=== PATIENT | female | born 1970 | race Caucasian/White ===

== ENCOUNTER 2022-09-02 11:29 | Outpatient (CLI) | payer OTHER, SELFPAY ==
[2022-09-02 17:41] LABS: Chloride* 102 mmol/L (96-114); Potassium* 3.5 mmol/L (3.6-5.1); Sodium* 140 mmol/L (135-149)
[2022-09-02 17:44] LABS: Blood Urea Nitrogen* 14 mg/dL (5-24); Carbon Dioxide* 30 mmol/L (20-32); Creatinine* 0.8 mg/dL (0.5-1.5); Estimated Glomerular Filt Rate 90 ml/min; Glucose* 78 mg/dL (60-115)
[2022-09-02 17:45] LABS: Calcium* 10.9 mg/dL (8.4-10.6)
== END 2022-09-02 11:30 | disposition home or self-care (01) ==
LOC: LONREF 11:30
PROVIDERS: PCP Family Medicine; Visit Provider Family Medicine
DX: Z00.00 Encounter for general adult medical examination without abnormal findings (principal); I10 Essential (primary) hypertension
CPT/HCPCS: 80048

== ENCOUNTER 2024-02-16 12:43 | Outpatient (CLI) | payer OTHER, SELFPAY ==
--- OUTSIDE RECORDS SUMMARY | 2024-02-16 12:47 | XMS_ITS | Clinical Summary ---
Author Name Unknown Organization [facility] Address [address] [place] [address] Care Team Providers Care Plate Maker Name Role Phone Self-Referral, Patient Primary Care Provider Source Comments You are receiving this document as you are listed as the primary care provider,follow-up provider, or the patient has been referred to you for consultation.This is in compliance with the Medicare and[facility] EHR Incentive Program,which states Providers who transition their patient to another setting of careor provider of care or refers their patient to another provider of care shouldprovide summary care record for each transition of care or referral. [facility] Allergies No known active allergies Medications No known medications Active Problems No known active problems Immunizations Name Administration Dates Next Due Td 10/08/2003 Social History Tobacco Use Types Packs/Day Years Used Date Smoking Tobacco: Never Tobacco Cessation:Counseling Given: Not Answered Sex and Gender Information Value Date Recorded Sex Assigned at Not on file Gender Identity Not on file Sexual Orientation Not on file Plan of Treatment Health Maintenance Due Date Last Done Comments Cervical Cancer Screening Due 1972 Colon Cancer Screening Plan Due 1972 Hep C Screening (Preventive Services) 1972 Mammogram 1972 HIV Screening (Preventive Services) 1988 Adult Preventive Visit 1990 HepB (1) 1991 Cholesterol 2017 Zoster/Shingles (1 of 2) 2022 COVID-19 Vaccine ( season) 2023 04/27/2022, 05/11/2021, 01/21/2021 Influenza (Season Ended) 2024 020, 08/15/2019, 08/11/2019, Additional history exists DTaP/Tdap/Td (5 - Tdap) 08/03/2031 08/03/20 21, 04/14/2011, 10/08/2003, Additional history exists HepA Aged Out No longer eligi ble based on patient's age to complete this topic Hib Aged Out No longer eligi ble based on patient's age to complete this topic IPV (Polio) Aged Out No longer eligi ble based on patient's age to complete this topic MCV4 Aged Out No longer eligi ble based on patient's age to complete this topic Pneumococcal Aged Out No longer eligi ble based on patient's age to complete this topic Care Teams Plate Maker Relationship Specialty Start Date End Date Self-Referral, Patient, [place] [address] PCP - General 07/26/22
--- OUTSIDE RECORDS SUMMARY | 2024-02-16 12:47 | XMS_ITS | Clinical Summary ---
Author Name Unknown Organization [facility] [place], [place] [address] Care Team Providers Care Computer Clerk Name Role Phone Giuliana Bradford MD Primary Care Provider + Allergies Active Allergy Reactions Criticality Noted Date Comments Sulfa (Sulfonamide Antibiotics) Rash 07/02 Medications Medication Sig Dispensed Refills Start Date End Date Status aluminum chloride (HYPERCARE) 20 % external solution Apply topically to affected area(s) at bedtime. 30 mL 5 06/28/2013 Active lisinopril (PRINIVIL; ZESTRIL) 10 mg tablet Take 1 tablet by mouth once daily. 90 tablet 2 11/15/2013 Active fluticasone (50 mcg per actuation) nasal solution (FLONASE) Inhale 1 [place] into both nostrils once daily. dont fill until patient asks 1 Bottle prn 11/15/2013 Active Active Problems Problem Noted Date Diagnosed Date Hypertension 07/15/2013 Environmental allergies 06/28/2013 Resolved Problems Problem Noted Date Diagnosed Date Resolved Date Elevated blood pressure 06/29/201307/02 Immunizations Name Administration Dates Next Due AMB Influenza, (Flumist) Aziza e Intranasal,LAIV4 (Flu Clinic Only) 08/04/2020 COVID-19 vaccine (Moderna 100mcg/0.5mL) PF MDV 05/11/2021 Influenza,LAIV4 Live Intrana bobo (Flumist) 08/15/2019,08/01/2018,08/06/2015, 014 Td (Age >=7 Years) 10/08/2003 Tdap 04/14/2011,10/02/2002 Family History Medical History Relation Name Comments Other Brother 2 colitis Hypertension Father Hyperlipidemia Mother Hypertension Mother Thyroid Disease Mother Cancer Paternal Grandmother Pancrea tic Good Health Sister 3 Other Sister 4 Cancer-breast No Family History Cancer-colon No Family History Cancer-ovarian No Family History Cancer-prostate No Family History Relation Name Status Comments Brother 1 Alive eldest Brother 2 Father Alive HTN , CABG (70' s) Maternal Grandfather Maternal Grandmother Mother Alive HTN (40's), thy roid, skin cancer, Paternal Grandfather Paternal Grandmother Sister 1 Alive youngest Sister 2 Alive second youngest Sister 3 Sister 4 Social History Tobacco Use Types Packs/Day Years Used Date Smoking Tobacco: Never Smokeless Tobacco: Never Alcohol Use Standard Drinks/Week Comments Yes 2.5 (1 standard drink = 0.6 oz p ure alcohol) OCC <3 per week. Sex and Gender Information Value Date Recorded Sex Assigned at Female 05/10/2021 11:21 AM CDT Gender Identity Female 05/10/2021 11:21 AM CDT Sexual Orientation Not on file Obstetrics History Last Filed Vital Signs Vital Sign Reading Time Taken Comments Blood Pressure 132/84 11/15/2013 12:36 PM THERMAL CUTTING MACHINE OPERATOR Pulse 80 11/15/2013 12:36 PM THERMAL CUTTING MACHINE OPERATOR Temperature 37 ??C (98.6 ??F) 11/15/2013 12:36 PM THERMAL CUTTING MACHINE OPERATOR Respiratory Rate 18 03/10/2011 8:17 AM CDT Oxygen Saturation 100% 07/29/2013 4:10 PM CDT Inhaled Oxygen Concentration - - Weight 79.8 kg (176 lb) 11/15/2013 12:36 PM THERMAL CUTTING MACHINE OPERATOR Height 165.1 cm (5' 5) 06/28/2013 3:55 PM CDT Body Mass Index 29.29 06/28/2013 3:55 PM CDT Plan of Treatment Health Maintenance Due Date Last Done Comments Depression screening for age 12+ 1984 HIV for age 15-65 1987 BMI (ht and wt on same day) for age 18+ 1990 Hepatitis C screening for age 18-79 1990 Colonoscopy through age 75 2017 Mammogram for age 45-75 2017 07/15/2013, 01/09 Lipids for age 45-75 07/15/2018 07/15/2013, 01/20/20 10 Pap test for age 21-65 12/07/2018 6, 06/28/2013, 04/14/2011, Additional history exists Tetanus booster 04/14/2021 04/14/2011, 04/2004, 10/02/2002 Zoster (shingles) series for age 50+ (1 of 2) 2022 COVID-19 vaccine series (2 - 2022-24 season) 2023 05/11/2021 Influenza for age 50-64 06/02/2024 Tdap Completed 04/14/2011, 10/02/2002 Pneumococcal series for age 6-64 Aged Out No longer eligible based on patient's age to complete this topic Procedures Procedure Name Priority Date/Time Associated Diagnosis Comments SENIOR TECHNICAL SPECIALIST THIN PREP PAP SCREEN IMAGED Routine 12/08/2015 8:15 AM THERMAL CUTTING MACHINE OPERATOR XR MAMMO BILAT SCREEN FFDM (IA) Routine 07/15/2013 8:44 AM CDT Other screening mammogram LIPID PANEL W REFLEX MEASURED LDL Routine 07/15/2013 8:10 AM CDT Well woman exam from Last 3 Months or Most Recently Relevant to Health Maintenance Results * SENIOR TECHNICAL SPECIALIST THIN PREP PAP SCREEN IMAGED (12/08/2015 8:15 AM THERMAL CUTTING MACHINE OPERATOR) SENIOR TECHNICAL SPECIALIST CYTOLOGY See Anatomic Pathology case 12/12/2015 4:00 PM THERMAL CUTTING MACHINE OPERATOR [facility] Specimen (specimen) (Cervical) Client Collect / Unknown 12/08/2015 8:15 AM THERMAL CUTTING MACHINE OPERATOR 12/08/2015 7:09 PM THERMAL CUTTING MACHINE OPERATOR Meme Chun NP PATHOLOGY/CYTOLOGY [facility] [address] [place] [address], [place] * XR MAMMO BILAT SCREEN FFDM (07/15/2013 8:44 AM CDT) Anatomical Region Laterality Modality BREASTS, Breast Left, Breast Right Bilateral Mammography Impressions 07/15/2013 10:27 AM CDT ??There is no radiographic evidence for malignancy. ??Recommend annual mammograms. A lay language report of this examination will be provided to the patient. MAMMOGRAM ASSESSMENT: ??ACR 2 Benign Narrative 07/15/2013 10:27 AM CDT XR MAMMO BILAT SCREEN FFDM [G0202.0] CLINICAL HISTORY: ??This is an asymptomatic 42 y.o. patient. INDICATION FOR EXAM: Mammogram Screening. TECHNIQUE: CC & MLO views were obtained. ??This digital study was evaluated with the assistance of Computer-Aided Detection. ?? COMPARISON FILMS: Yes 01/10/12 [facility] FINDINGS: ??Mammographically, the breast tissue is heterogeneously dense, which could obscure detection of small masses (approximately 51% - 75% glandular). ??No suspicious masses or microcalcifications. ??Benign appearing mass(es) within left breast. Procedure Note Ely Blankenship MD - 07/15/2013 XR MAMMO BILAT SCREEN FFDM [G0202.0] CLINICAL HISTORY: This is an asymptomatic 42 y.o. patient. INDICATION FOR EXAM: Mammogram Screening. TECHNIQUE: CC & MLO views were obtained. This digital study was evaluatedwith the assistance of Computer-Aided Detection. COMPARISON FILMS: Yes 01/10/12 [facility] FINDINGS: Mammographically, the breast tissue is heterogeneously dense,which could obscure detection of small masses (approximately 51% - 75%glandular). No suspicious masses or microcalcifications. Benignappearing mass(es) within left breast. IMPRESSION: There is no radiographic evidence for malignancy. Recommendannual mammograms. A lay language report of this examination will be provided to the patient. MAMMOGRAM ASSESSMENT: ACR 2 Benign Giuliana Bradford MD MAMMO * LIPID PANEL W REFLEX MEASURED LDL (07/15/2013 8:10 AM CDT) CHOLESTEROL,TOTA L 160 100 - 199 mg/dL [facility] TRIGLYCERIDES 92 <150 mg/dL [facility] HDL CHOLESTEROL 64 >40 mg/dL [facility] CHOL/HDL RATIO 2.50 <4.50 [facility] NON-HDL CHOLESTEROL 96 Undefined mg/dL [facility] LDL CHOLESTEROL 78 <131 mg/dL [facility] PATIENT STATUS Fasting [facility] Blood specimen (specimen) BLOOD SPECIMEN / Unknown 07/15/2013 8:10 AM CDT 07/15/2013 8:06 AM CDT Giuliana Bradford MD CHEMISTRY [facility] INTERNAL ZIP [id number] [place] [phone] from Last 3 Months or Most Recently Relevant to Health Maintenance Care Teams Computer Clerk Relationship Specialty Start Date End Date Giuliana Bradford MD [address] [id number] PCP - General Family Practice 07/11/13
--- NOTE | 2024-02-16 13:00 | MM_ITS ---
Patient: SHEILA EWING Facility:?[facility] Patient ID:?[id number] Site Patient ID:?[id number]. Site :?[id number] Study:?XRay-Breast Bilateral 3D W/CAD-02/16/2024 1:19:03 PM Ordering Physician:Jase Final Report: BILATERAL SCREENING MAMMOGRAM WITH COMPUTER-AIDED DETECTION AND TOMOSYNTHESIS TECHNIQUE: CC and MLO views were obtained. These mammographic images have been obtained using full-field digital technique. These mammographic images were interpreted with the benefit of computer-aided detection. Breast Tomosynthesis was used in this interpretation. COMPARISON FILM: 02/13/23, 01/24/22, 12/22/20. FINDINGS: The breasts are heterogeneously dense, which may obscure small masses. IMPRESSION: There is no radiographic evidence for malignancy. ASSESSMENT: BI-RADS Category 2: Benign RECOMMENDATION: Routine screening mammogram in 1 year. A lay language report of this examination will be provided to the patient. Stone Holliday M.D. Diagnostic Radiologist [email or web address] DSM/sp R& Transcribed: 6:43 p.m. SP/Dictated by: Stone Holliday MD @ 02/19/2024 11:12:00 AM Signed by:?Stone Holliday MD @02/19/2024 8:47:29 PM (Electronic Signature)
== END 2024-02-16 12:44 | disposition home or self-care (01) ==
LOC: MAMMO 12:45
PROVIDERS: PCP Family Medicine; Visit Provider Family Medicine
DX: Z12.31 Encounter for screening mammogram for malignant neoplasm of breast (principal); R92.2 Inconclusive mammogram
CPT/HCPCS: 77063; 77067

== ENCOUNTER 2024-10-01 09:39 | Outpatient (CLI) | payer OTHER, SELFPAY | END 2024-10-01 09:40 | disposition home or self-care (01) | PROVIDERS: PCP Family Medicine; Visit Provider Emergency Medicine | DX: E83.52 Hypercalcemia (principal); I10 Essential (primary) hypertension; R60.0 Localized edema; Z13.29 Encounter for screening for other suspected endocrine disorder | CPT/HCPCS: 80053; 82306; 83970; 84443 ==

== ENCOUNTER 2024-11-06 09:02 | Outpatient (CLI) | payer OTHER, SELFPAY | END 2024-11-06 09:03 | disposition home or self-care (01) | PROVIDERS: PCP Emergency Medicine; Visit Provider Emergency Medicine | DX: R79.89 Other specified abnormal findings of blood chemistry (principal); I10 Essential (primary) hypertension | CPT/HCPCS: 80048; 82306; 83735; 83970; 84100 ==

== ENCOUNTER 2024-12-02 09:31 | Outpatient (CLI) | payer OTHER, SELFPAY ==
[2024-12-02 12:31] LABS: Creatinine Urine 48.4 mg/dL
[2024-12-02 12:51] LABS: Collection Time Urine 24 Hours
[2024-12-02 12:52] LABS: Total Volume 24 Hour Urine 2750 ml; Urine Creatinine mg/24 Hour 1331 mg/Day
[2024-12-03 18:57] LABS: Calcium/Creatinine Ratio Urine 312 mg/g (20-300); Hours Collected 24 hr; Total Volume 2750 mL
== END 2024-12-02 09:32 | disposition home or self-care (01) ==
LOC: NPINS 09:33
PROVIDERS: PCP Emergency Medicine; Visit Provider Internal Medicine Endocrinology, Diabetes & Metabolism
DX: E21.3 Hyperparathyroidism, unspecified (principal)
CPT/HCPCS: 82340; 82570

== ENCOUNTER 2024-12-12 14:37 | Outpatient (CLI) | payer OTHER, SELFPAY ==
--- NOTE | 2024-12-12 15:00 | CRLHL7_ITS ---
For Patients: As a result of the Century Cures Act, medical imaging exams and procedure reports are released immediately into your electronic medical record. You may view this report before your referring provider. If you have questions, please contact your health care provider. XR DXA BONE MINERAL DENSITY (BMD) Current height (in): 65.0. Weight (lb): 190.0. Menopause age: 48. Ethnicity: White. Reason for exam: Hyperparathyroidism. 1. Have you had a previous hip or vertebral fracture? No. 2. Have you had any fractures during your adult life which did not result from significant trauma (e.g., auto accident)? No. 3. Did either of your parents have a hip fracture? No. 4. Do you smoke? No. 5. Have you ever taken Glucocorticoids? No. 6. Do you have rheumatoid arthritis? No. 7. Do you have secondary osteoporosis? No. 8. Do you drink 3 or more alcoholic drinks per day? No. 9. Are you being treated for osteoporosis? No. 10. Have you ever taken any of the following medications: Actonel, Evista, Fosamax, Miacalcin, Reclast, Boniva, Forteo, HRT (i.e. estrogen/hormone therapy), Protelos, Prolia, Vitamin D, Calcium, other ??? please specify. ANSWER: Yes, vitamin D. 11. Do you have any of the following medical conditions: Anorexia or bulimia, asthma or emphysema, end stage renal disease, hyperparathyroidism, any seizure disorders, cancer, inflammatory bowel diseases, hysterectomy, other ??? please specify. ANSWER: Yes, hyperparathyroidism, hysterectomy. 12. What was your maximum height (inches)? 65. 13. Do you perform weight bearing exercise regularly? No. 14. Do you regularly consume dairy products? No. 15. Do you drink caffeinated beverages? No. 16. At what age did your period start? 14. 17. Are you premenopausal? No. 18. How many full-term pregnancies have you had? 0. 19. Have you ever missed your period for more than 6 months in a row (not including or menopause)? No. TECHNIQUE: Bone mineral density study was performed using the Terascore. FINDINGS: The results of the study expressed as bone mineral density (BMD) are as follows: Lumbar spine L1 to L4: BMD: 0.868 g/cm2. T-score: -1.6. Z-score: -0.8 Neck Left: BMD: 0.677 g/cm2. T-score: -1.6. Z-score: -0.7 Right: BMD: 0.676 g/cm2. T-score: -1.6. Z-score: -0.7 Total Left: BMD: 0.919 g/cm2. T-score: -0.2. Z-score: 0.4 Right: BMD: 0.918 g/cm2. T-score: -0.2. Z-score: 0.4 IMPRESSION: Osteopenia. FRAX 10-year Fracture Risk Major Osteoporotic Fracture: 5.2 percent Hip Fracture: 0.4 percent Reported Risk Factors: [place] () Neck BMD = 0.676, BMI = 31.6 Stone Holliday M.D. Diagnostic Radiologist [email or web address] Transcribed: 10:47 am DW/Dictated by: Stone Holliday MD @ 12/13/2024 10:04:00 AM (Electronically Signed)
== END 2024-12-12 14:38 | disposition home or self-care (01) ==
LOC: RAD 14:39
PROVIDERS: PCP Emergency Medicine; Visit Provider Internal Medicine Endocrinology, Diabetes & Metabolism
DX: E21.3 Hyperparathyroidism, unspecified (principal); M85.89 Other specified disorders of bone density and structure, multiple sites
CPT/HCPCS: 77080

== ENCOUNTER 2025-01-14 13:03 | Outpatient (CLI) | payer OTHER, SELFPAY | END 2025-01-14 13:04 | disposition home or self-care (01) | LOC: LKVREF 13:04 | PROVIDERS: PCP Emergency Medicine; Visit Provider Emergency Medicine | DX: I10 Essential (primary) hypertension (principal) | CPT/HCPCS: 80048 ==

== ENCOUNTER 2025-03-07 12:43 | Outpatient (CLI) | payer OTHER, SELFPAY ==
--- NOTE | 2025-03-07 13:00 | CRLHL7_ITS ---
For Patients: As a result of the Century Cures Act, medical imaging exams and procedure reports are released immediately into your electronic medical record. You may view this report before your referring provider. If you have questions, please contact your health care provider. INDICATION: BILATERAL SCREENING MAMMOGRAM, ASYMPTOMATIC 54 Y/O FEMALE COMPARISON: 02/16/2024, 02/13/2023, 01/24/2022 TECHNIQUE: Digital mammogram in CC and MLO projections including computer-aided detection (CAD) and tomosynthesis. BREAST COMPOSITION: There are scattered areas of fibroglandular density. FINDINGS: No suspicious findings. ASSESSMENT: BI-RADS 2 Benign RECOMMENDATION: Annual screening mammogram. A lay language report of this examination will be provided to the patient. Dictated by: Stone Holliday MD @ 03/13/2025 09:25:38 (Electronically Signed)
== END 2025-03-07 12:44 | disposition home or self-care (01) ==
LOC: MAMMO 12:44
PROVIDERS: PCP Emergency Medicine; Visit Provider Emergency Medicine
DX: Z12.31 Encounter for screening mammogram for malignant neoplasm of breast (principal)
CPT/HCPCS: 77063; 77067